=== PATIENT | male | born 1950 | race Hispanic/Latino ===

== ENCOUNTER → 2019-10-16 | Outpatient (CLI) | payer MEDICARE ==
[~2019-10-16] MED LIST: DIATRIZOATE MEGL/DIATRIZOA SOD 120 ML BTL PO ONE
--- NOTE | 2019-10-16 12:16 | Diagnostic Imaging Report ---
EXAM: Gastrografin enema DATE: 10/16/2019 10:24 AM INDICATION: History of colostomy and rectal perforation COMPARISON: Contrast enema from outside institution reviewed Fluoroscopy Time: 1.3 min. Reference Air Kerma (Ka, r): 29.7 mGy. FINDINGS: Group Sales Representative images were obtained demonstrating no significant abnormalities. Enema tip was placed and retention balloon inflated. Water soluble contrast material was administered passively without complication. There is opacification of the rectum and sigmoid colon. Contrast material noted reaching the left lower quadrant colostomy bag without evidence for obstruction or extravasation. The opacified colonic mucosa appears unremarkable without evidence for fixed filling defect, intrinsic/extrinsic compression, or other abnormality. IMPRESSION: No extravasation of contrast identified on today's examination to suggest rectal/colonic perforation or leak. Post surgical changes from left lower quadrant colostomy. Signed by: Dr. Dequan Ross MD on 10/16/2019 12:13 PM
== END ==
LOC: DX 10:23
PROVIDERS: ATTEND Surgery
DX: K63.1 Perforation of intestine (nontraumatic) (principal)
CPT/HCPCS: 74270; Q9963

== ENCOUNTER 2019-11-24 06:27 | Inpatient (IN) | payer MEDICARE ==
[2019-11-19 11:42] LABS: BASOPHILS % 0.7 % (0.0-1.0); EOSINOPHILS # (AUTO) 0.2 (0.0-0.4); EOSINOPHILS % 2.8 % (0.0-6.0); HEMATOCRIT 41.8 % (38.2-49.6); HEMOGLOBIN 13.7 g/dL (14.0-18.0); LYMPHOCYTES # (AUTO) 1.9 (1.0-3.2); LYMPHOCYTES % 33.3 % (18.0-39.1); MEAN CORPUSCULAR HEMOGLOBIN 29.4 pg (28-32); MEAN CORPUSCULAR HGB CONC 32.8 g/dL (31-35); MEAN CORPUSCULAR VOLUME 89.7 fL (81-99); MONOCYTES # (AUTO) 0.6 (0.2-0.8); MONOCYTES % 10.7 % (4.4-11.3); NEUTROPHILS % 52.1 % (38.7-80.0); PLATELET COUNT 216 x10e3/uL (140-360); RED BLOOD COUNT 4.66 x10e6/uL (4.3-5.7); RED CELL DISTRIBUTION WIDTH 13.1 % (11.7-14.4)
[2019-11-19 11:59] LABS: ALANINE AMINOTRANSFERASE 13 IU/L (0-55); ALBUMIN 3.8 g/dL (3.5-5.0); ALBUMIN/GLOBULIN RATIO 1.1 (0.8-2.0); ALKALINE PHOSPHATASE 56 IU/L (40-150); ANION GAP 11.6 mmol/L (8-16); BLOOD UREA NITROGEN 14 mg/dL (7-26); BUN/CREATININE RATIO 13 (6-25); CALCIUM 8.9 mg/dL (8.4-10.2); CARBON DIOXIDE 29 mmol/L (22-29); CHLORIDE 104 mmol/L (98-107); CREATININE, SERUM 1.09 mg/dL (0.72-1.25); EST GLOMERULAR FILTRATION RATE > 60 ML/MIN (60-); GLUCOSE 87 mg/dL (74-118); POTASSIUM 4.6 mmol/L (3.5-5.1); SODIUM 140 mmol/L (136-145)
--- NOTE | 2019-11-19 12:54 | Diagnostic Imaging Report ---
EXAMINATION: PA and lateral views of the chest. COMPARISON: None CLINICAL HISTORY: Preoperative study for colon resection DISCUSSION: The lungs are well inflated. No focal airspace consolidation, pleural effusion, or pneumothorax. Cardiomediastinal contour and pulmonary vasculature are within normal limits. No acute osseous abnormalities. IMPRESSION: No acute cardiopulmonary abnormalities. Signed by: Dr. Gee Taylor M.D. on 11/19/2019 12:50 PM
[~2019-11-24] VITALS: Ht 170.2 cm; Wt 77.1 kg
[2019-11-24] MEDS ORDERED: LISINOPRIL-HCT1 EACH PO (07:08)
[2019-11-24] MEDS ORDERED: PROTONIX20 MG PO (07:08)
[2019-11-24] MEDS ORDERED: LEVOCETIRIZINE D5 MG PO (07:27)
[2019-11-24] MEDS ORDERED: MINERAL OIL STERILE 10ML VIAL ONE (08:19)
[2019-11-24] MEDS ORDERED: ACETAMINOPHEN 1000 MG/100 ML IV PRN (11:15)
[2019-11-24] MEDS ORDERED: METOCLOPRAMIDE HCL 10 MG/2ML VIAL ONE (11:56)
[2019-11-24] MEDS ORDERED: FENTANYL CITRATE/PF 100MCG/2 ML INJ ONE (11:56)
[2019-11-24] MEDS ORDERED: MEPERIDINE HCL INJ 25 MG/ML VIAL ONE (12:09)
[2019-11-24] MEDS: PANTOPRAZOLE 40 MG 10ML VIAL IV SCH (12:30)
--- NOTE | 2019-11-24 13:53 | Operative Report ---
DATE OF PROCEDURE: 11/24/2019 SURGEON: Vidal Longo MD PREOPERATIVE DIAGNOSIS: Colostomy, status post rectal perforation. POSTOPERATIVE DIAGNOSIS: Colostomy, status post rectal perforation. OPERATION PERFORMED: Exploratory laparotomy, colon resection and closure of colostomy. RECHECKER: DEX Trujillo. ANESTHESIA: General. COMPLICATIONS: None. ESTIMATED BLOOD LOSS: 50 mL. DESCRIPTION OF PROCEDURE: With the patient lying in bed in the supine position under good general endotracheal anesthesia, the abdomen was prepped with Betadine solution and draped in the usual manner. An elliptical incision was made around the left lower quadrant colostomy, it was carried down through the subcutaneous tissue all the way down to the fascia. The sac was then opened and the bowel was then identified at this point and cleared off from adhesions all the way around. Once this was done, there was also some adhesions to the small bowel to the anterior abdominal wall, which was slowly and carefully taken down, and we freed up the abdominal wall to be able to the liver, the colon to the outside was proximal and distally. The colon was then dissected and brought up into the wound proximal and distal to the colostomy. The colon was then divided with an application of SEVEN-75 stapler. The mesentery was then divided between 2-0 silk ties and the specimen was sent for pathological examination. After this was done, the colon had been easily mobilized, so an anastomosis was then performed with another application of SEVEN-75 stapler with the remaining opening closed with a TA-60 stapler. Gloves and instruments were then changed. The anastomosis was reinforced with interrupted sutures of 3-0 silk. Mesenteric rent was then closed with a running suture of 2-0 Vicryl and the bowel was then reduced back to the intraabdominal cavity. After this was done, hemostasis was ascertained and the abdomen was then closed in layers. The peritoneum was closed with a running suture of #1 Vicryl. The fascia was cleared all the way around and closed with interrupted [id number] of #1 Vicryl and subcutaneous tissue was drained with a quarter-inch Edi drain and approximated with interrupted sutures of 2-0 chromic and the skin was closed with interrupted vertical mattress sutures of 2-0 nylon and clips. A dressing was applied. The sponge, lap, and needle count was correct. The patient tolerated the procedure well and returned to the recovery room in stable condition. MD RICHARD Webster/CARLEEN /[id number]
[2019-11-24 14:06] VITALS: BP 144/62
[2019-11-24] MEDS ORDERED: SEVOFLURANE INHAL SOLN 250 ML PEN BTL ONE (14:14)
[2019-11-24] MEDS ORDERED: NEOSTIGMINE 1 MG/ML 10ML VIAL ONE (14:14)
[2019-11-24] MEDS ORDERED: ROCURONIUM BROMIDE 10 MG/ML 5ML VIAL IV ONE (14:14)
[2019-11-24] MEDS ORDERED: GLYCOPYRROLATE INJ 0.2 MG/ML VIAL ONE (14:14)
[2019-11-24] MEDS ORDERED: PROPOFOL IV EMULSION 10 MG/ML 20 ML VIAL ONE (14:14)
[2019-11-24] MEDS ORDERED: ONDANSETRON HCL INJ 2MG/ML 2ML 2 MG/ML VIAL ONE (14:14)
[2019-11-24] MEDS ORDERED: ETOMIDATE 2 MG/ML 10 ML INJ IV ONE (14:14)
[2019-11-24] MEDS ORDERED: LIDOCAINE HCL 2% LOCAL INJ 5 ML SDV VIAL INJ ONE (14:14)
[2019-11-24] MEDS ORDERED: LIDOCAINE HCL 2% JELLY 5 ML TUBE ONE (14:14)
[2019-11-24] MEDS: ONDANSETRON HCL INJ 2MG/ML 2ML 2 MG/ML VIAL IV PRN ×2 (14:48→20:16)
[2019-11-24] MEDS: HYDROMORPHONE 1MG/1ML INJ IV PRN (14:48)
[2019-11-24] MEDS ORDERED: CEFOXITIN 1GM/ D5W 50ML 50 ML IV SCH (15:00)
[2019-11-24] MEDS: DEXTROSE 5%/LACTATED RINGERS 1,000 ML IV SCH (15:00)
[2019-11-24] MEDS: SODIUM CHLORIDE 0.9% 250ML IRRIG IR SCH ×3 (15:02→20:16)
[2019-11-24 16:41] VITALS: BP 144/62
[2019-11-24 16:46] VITALS: BP 144/62
[2019-11-24 16:48] VITALS: BP 142/78
--- NOTE | 2019-11-24 19:00 | NUR ---
RECEIVED PATIENT IN BEDSIDE SHIFT REPORT. PATIENT RESTING IN BED AT THIS TIME. NO PAIN REPORTED, BUT NAUSEATED, WILL MEDICATE. NG TUBE TO L NARE WITH LCWS, SUCTIONING BROWISH/GREEN FLUID. R HAND 20G ASYMPTOMATIC, INTACT, AND PATENT, RUNNING D5LR@100ML/HR. SCDS ACTIVE. URINAL PROVIDED. BED LOCKED IN LOWEST POSITION, SIDE RAILS UPX2, CALL LIGHT IN REACH.
[2019-11-24 20:00] VITALS: BP 146/72
[2019-11-24 20:51] VITALS: BP 146/72
[2019-11-24] MEDS ORDERED: CEFOXITIN SOD 1 GM in SODIUM CHLORIDE 0.9% 50ML 50 ML IV SCH (21:00)
[2019-11-25] VITALS (8 sets, daily range): BP systolic 138–150; BP diastolic 72–86
[2019-11-25] MEDS: SODIUM CHLORIDE 0.9% 250ML IRRIG IR SCH ×5 (00:01→15:15)
[2019-11-25] MEDS: ONDANSETRON HCL INJ 2MG/ML 2ML 2 MG/ML VIAL IV PRN ×2 (00:06→09:32)
[2019-11-25] MEDS: DEXTROSE 5%/LACTATED RINGERS 1,000 ML IV SCH ×3 (00:49→19:46)
[2019-11-25] MEDS: HYDROMORPHONE 1MG/1ML INJ IV PRN (00:49)
[2019-11-25 04:58] LABS: BASOPHILS % 0.1 % (0.0-1.0); EOSINOPHILS % 0.1 % (0.0-6.0); HEMATOCRIT 40.5 % (38.2-49.6); HEMOGLOBIN 13.5 g/dL (14.0-18.0); LYMPHOCYTES % 9.3 % (18.0-39.1); MEAN CORPUSCULAR HEMOGLOBIN 29.8 pg (28-32); MEAN CORPUSCULAR HGB CONC 33.3 g/dL (31-35); MEAN CORPUSCULAR VOLUME 89.4 fL (81-99); NEUTROPHILS # (AUTO) 8.5 (2.1-6.9); NEUTROPHILS % 81.2 % (38.7-80.0); PLATELET COUNT 188 x10e3/uL (140-360); RED BLOOD COUNT 4.53 x10e6/uL (4.3-5.7); RED CELL DISTRIBUTION WIDTH 12.6 % (11.7-14.4)
[2019-11-25 05:15] LABS: ANION GAP 14.2 mmol/L (8-16); BLOOD UREA NITROGEN 9 mg/dL (7-26); BUN/CREATININE RATIO 9 (6-25); CALCIUM 8.2 mg/dL (8.4-10.2); CARBON DIOXIDE 25 mmol/L (22-29); CHLORIDE 103 mmol/L (98-107); CREATININE, SERUM 1.02 mg/dL (0.72-1.25); EST GLOMERULAR FILTRATION RATE > 60 ML/MIN (60-); GLUCOSE 147 mg/dL (74-118); POTASSIUM 4.2 mmol/L (3.5-5.1); SODIUM 138 mmol/L (136-145)
--- NOTE | 2019-11-25 07:04 | NUR ---
received change of shift report from PM nurse. pt awake, alert, oriented, no signs of distress. IV patent, intact infusing D5LR; NG tube to left nare with LCWS intact. pt has no complaints at this time. will continue to monitor.
[2019-11-25] MEDS: LISINOPRIL 20 MG TAB PO SCH (09:00)
[2019-11-25] MEDS: HYDROCHLOROTHIAZIDE 25 MG TAB PO SCH (09:00)
[2019-11-25] MEDS: PANTOPRAZOLE 40 MG 10ML VIAL IV SCH (15:00)
--- NOTE | 2019-11-25 15:21 | NUR ---
NG Tube removed per MD's order; tip intact, no complications. Pt tolerated well. pt to remain NPO at this time.
[2019-11-26] VITALS (7 sets, daily range): BP systolic 148–165; BP diastolic 74–90
[2019-11-26] MEDS: DEXTROSE 5%/LACTATED RINGERS 1,000 ML IV SCH ×2 (05:14→18:34)
[2019-11-26 05:47] LABS: BASOPHILS % 0.2 % (0.0-1.0); EOSINOPHILS # (AUTO) 0.1 (0.0-0.4); EOSINOPHILS % 0.6 % (0.0-6.0); HEMATOCRIT 41.4 % (38.2-49.6); HEMOGLOBIN 14.2 g/dL (14.0-18.0); LYMPHOCYTES % 10.3 % (18.0-39.1); MEAN CORPUSCULAR HEMOGLOBIN 30.7 pg (28-32); MEAN CORPUSCULAR HGB CONC 34.3 g/dL (31-35); MEAN CORPUSCULAR VOLUME 89.4 fL (81-99); MONOCYTES % 10.6 % (4.4-11.3); NEUTROPHILS # (AUTO) 7.7 (2.1-6.9); NEUTROPHILS % 77.9 % (38.7-80.0); PLATELET COUNT 170 x10e3/uL (140-360); RED BLOOD COUNT 4.63 x10e6/uL (4.3-5.7); RED CELL DISTRIBUTION WIDTH 12.8 % (11.7-14.4)
[2019-11-26 06:11] LABS: ANION GAP 10.7 mmol/L (8-16); BLOOD UREA NITROGEN 5 mg/dL (7-26); BUN/CREATININE RATIO 6 (6-25); CALCIUM 8.7 mg/dL (8.4-10.2); CARBON DIOXIDE 27 mmol/L (22-29); CHLORIDE 104 mmol/L (98-107); CREATININE, SERUM 0.87 mg/dL (0.72-1.25); EST GLOMERULAR FILTRATION RATE > 60 ML/MIN (60-); GLUCOSE 135 mg/dL (74-118); POTASSIUM 3.7 mmol/L (3.5-5.1); SODIUM 138 mmol/L (136-145)
[2019-11-26] MEDS: LISINOPRIL 20 MG TAB PO SCH (09:00)
[2019-11-26] MEDS: HYDROCHLOROTHIAZIDE 25 MG TAB PO SCH (09:00)
[2019-11-26] MEDS ORDERED: BISACODYL 10 MG SUPP PR SCH (11:00)
[2019-11-26] MEDS ORDERED: BISACODYL 10 MG SUPP PR ONE (18:00)
[2019-11-26] MEDS: PANTOPRAZOLE 40 MG 10ML VIAL IV SCH (18:32)
[2019-11-27] VITALS (8 sets, daily range): BP systolic 120–155; BP diastolic 77–83
[2019-11-27] MEDS: DEXTROSE 5%/LACTATED RINGERS 1,000 ML IV SCH ×2 (04:20→15:06)
[2019-11-27 05:56] LABS: BASOPHILS % 0.4 % (0.0-1.0); EOSINOPHILS # (AUTO) 0.2 (0.0-0.4); HEMATOCRIT 37.4 % (38.2-49.6); HEMOGLOBIN 13.1 g/dL (14.0-18.0); LYMPHOCYTES # (AUTO) 2.2 (1.0-3.2); LYMPHOCYTES % 21.7 % (18.0-39.1); MEAN CORPUSCULAR HEMOGLOBIN 32.7 pg (28-32); MEAN CORPUSCULAR VOLUME 93.3 fL (81-99); MONOCYTES # (AUTO) 1.1 (0.2-0.8); NEUTROPHILS # (AUTO) 6.4 (2.1-6.9); NEUTROPHILS % 64.6 % (38.7-80.0); PLATELET COUNT 167 x10e3/uL (140-360); RED BLOOD COUNT 4.01 x10e6/uL (4.3-5.7); RED CELL DISTRIBUTION WIDTH 14.6 % (11.7-14.4)
[2019-11-27 06:27] LABS: ANION GAP 11.5 mmol/L (8-16); BLOOD UREA NITROGEN 8 mg/dL (7-26); BUN/CREATININE RATIO 9 (6-25); CALCIUM 8.9 mg/dL (8.4-10.2); CARBON DIOXIDE 27 mmol/L (22-29); CHLORIDE 105 mmol/L (98-107); CREATININE, SERUM 0.94 mg/dL (0.72-1.25); EST GLOMERULAR FILTRATION RATE > 60 ML/MIN (60-); GLUCOSE 106 mg/dL (74-118); POTASSIUM 3.5 mmol/L (3.5-5.1); SODIUM 140 mmol/L (136-145)
[2019-11-27] MEDS: HYDROCHLOROTHIAZIDE 25 MG TAB PO SCH (08:42)
[2019-11-27] MEDS: LISINOPRIL 20 MG TAB PO SCH (08:43)
[2019-11-27] MEDS ORDERED: HYDROCODONE/APAP 7.5MG-325MG 1 EA TAB PO PRN (11:00)
[2019-11-27] MEDS: PANTOPRAZOLE 40 MG 10ML VIAL IV SCH (16:14)
--- NOTE | 2019-11-27 20:00 | NUR ---
REFUSED BED ALARM. PATIENT AMBULATES INDEPENDENTLY.
[2019-11-28] VITALS: BP 137/72
[2019-11-28 04:00] VITALS: BP 140/83
[2019-11-28] MEDS: DEXTROSE 5%/LACTATED RINGERS 1,000 ML IV SCH (05:14)
[2019-11-28] MEDS: HYDROCHLOROTHIAZIDE 25 MG TAB PO SCH (08:27)
[2019-11-28] MEDS: LISINOPRIL 20 MG TAB PO SCH (08:27)
[2019-11-28 08:30] VITALS: BP 152/93
[2019-11-28 12:05] VITALS: BP 127/81
[2019-11-28] MEDS ORDERED: TYLENOL WITH C1 EACH PO (12:39)
[2019-11-28] MEDS ORDERED: KEFLEX500 MG PO (12:42)
== END 2019-11-28 13:11 | disposition home or self-care (01) | DRG 331 ==
LOC: OR 06:27 → PACU V 11:14 → MED/SURG 13:19
PROVIDERS: ADMIT Surgery; ATTEND Surgery
PROC: 0DBE0ZZ Excision of Large Intestine, Open Approach (ICD-10-PCS; principal; 2019-11-24 07:30)
DX: Z43.3 Encounter for attention to colostomy (principal); Z85.46 Personal history of malignant neoplasm of prostate; I10 Essential (primary) hypertension; Z90.79 Acquired absence of other genital organ(s); Z11.59 Encounter for screening for other viral diseases
CPT/HCPCS: 36415; 71046; 80048; 80053; 82948; 85025; 88304; 88307; 93005; J0694; J1170; J2001; J2175; J2405; J2710; J2765; J3010; U0002

== ENCOUNTER → 2024-01-17 | Outpatient (REF) | payer OTHER ==
[~2024-01-17] MED LIST changes: -DIATRIZOATE MEGL/DIATRIZOA SOD 120 ML BTL PO ONE; +KEFLEX500 MG PO; +LEVOCETIRIZINE D5 MG PO; +LISINOPRIL-HCT1 EACH PO; +PROTONIX20 MG PO; +TYLENOL WITH C1 EACH PO
== END ==
LOC: CT 16:04
PROVIDERS: ATTEND Internal Medicine
DX: R41.3 Other amnesia (principal)
CPT/HCPCS: 70450

== ENCOUNTER → 2024-11-21 | Outpatient (REF) | payer OTHER | LOC: RAD 11:15 | PROVIDERS: ATTEND Internal Medicine | DX: M77.8 Other enthesopathies, not elsewhere classified (principal) ==